=== PATIENT | female | born 1975 | race Caucasian/White ===

== ENCOUNTER 2019-01-11 08:48 | Emergency (ER) | payer BC, OTHER ==
[~2019-01-11] VITALS: Ht 154.9 cm; Wt 62.1 kg
[2019-01-11 08:48] VITALS: BP_SYST 133
[~2019-01-11 08:48] MED LIST: CETI-101 PO; PREN1TAB49 PO
--- NOTE | 2019-01-11 08:48 | NUR ---
BROUGHT BACK TO BED #7 AND TRIAGED. REPORT GIVEN TO NAKITA
--- NOTE | 2019-01-11 08:50 | NUR ---
Pt sent to ED for evaluation of vag bleeding x 5-7 days. Pt c/o SALCEDO no acute distress noted.
[2019-01-11] MEDS ORDERED: KETOROLAC TROMETHAMINE 30 MG VIAL IVP ONE (09:00)
[2019-01-11] MEDS ORDERED: ESTROGENS,CONJUGATED 25 MG in NS 50 ML IV ONE (09:00)
--- NOTE | 2019-01-11 09:10 | NUR ---
# 20 gauge angiocath placed to RAC. Use of asceptic technique. Opsite placed over site. Blood return noted. Blood for lab drawn from site. Flushed with 10 cc of normal saline. No evidence of infiltration noted. Patient tolerated well.
--- NOTE | 2019-01-11 09:20 | NUR ---
ER at bedside examining patient.
[2019-01-11 09:33] LABS: BASOPHILS % (AUTO) 0.5 % (0.0-2.0); EOSINOPHILS # (AUTO) 0.1 K/uL (0.0-0.4); EOSINOPHILS % (AUTO) 1.4 % (0.0-4.0); HEMATOCRIT 37.1 % (36-48); HEMOGLOBIN 12.5 g/dL (12.0-16.0); LYMPHOCYTES # (AUTO) 2.6 K/uL (1.0-5.5); LYMPHOCYTES % (AUTO) 34.2 % (20.5-51.5); MEAN CORPUSCULAR HEMOGLOBIN 29 pg (27-31); MEAN CORPUSCULAR HGB CONC 34 % (32-36); MEAN CORPUSCULAR VOLUME 85 fL (79.0-98.0); MONOCYTES # (AUTO) 0.3 K/uL (0.0-1.0); NEUTROPHILS # (AUTO) 4.6 K/uL (1.8-7.7); NEUTROPHILS % (AUTO) 59.9 % (40.0-70.0); PLATELET COUNT (AUTO) 362 K/uL (130-430); RED BLOOD CELL COUNT(AUTO) 4.35 MIL/uL (4.2-6.2); RED CELL DISTRIBUTION WIDTH 13.6 % (9.0-15.0); WHITE BLOOD COUNT (AUTO) 7.6 K/uL (4.8-10.8)
[2019-01-11 09:47] LABS: CALCIUM 8.6 mg/dL (8.4-11.0); CREATININE 0.65 mg/dL (0.55-1.30); POTASSIUM 3.7 mmol/L (3.5-5.1)
[2019-01-11 09:54] LABS: ALBUMIN 3.6 g/dL (3.4-4.8); TOTAL BILIRUBIN 0.3 mg/dL (0.0-1.0)
--- NOTE | 2019-01-11 10:00 | NUR ---
pt medicated.pt tolerated well.
[2019-01-11 10:10] VITALS: BP_SYST 133
--- NOTE | 2019-01-11 10:10 | NUR ---
Patient given written and verbal discharge instructions and verbalizes understanding. ER MD discussed with patient the results and treatment provided. Patient in stable condition. ID arm band removed. IV catheter removed intact and dressing applied, no active bleeding. Rx of augmentin,provera,naprosyn given. Patient educated on pain management and to follow up with PMD. Pain Scale 0. Opportunity for questions provided and answered. Medication side effect fact sheet provided.
== END 2019-01-11 10:10 | disposition home or self-care (01) ==
LOC: SED 08:48
DX: N93.8 Other specified abnormal uterine and vaginal bleeding (principal); J32.9 Chronic sinusitis, unspecified; Z79.899 Other long term (current) drug therapy
CPT/HCPCS: 36415; 80053; 85025; 96374; 99283; J1885

== ENCOUNTER 2019-01-21 08:54 | Day surgery (SDC) | payer OTHER ==
[~2019-01-21] VITALS: Ht 154.9 cm; Wt 61.7 kg
[2019-01-21] MEDS ORDERED: CEFAZOLIN SOD 2 GM in D5W 50 ML IV ONE (10:00)
[2019-01-21] MEDS ORDERED: SCOPOLAMINE HYDROBROMIDE 1.5 MG PATCH .72 H (TRANSDERM-SCOP) TD SCH (10:30)
[2019-01-21] MEDS ORDERED: LIDOCAINE 2%, 20 ML MDV INJ ONE (11:16)
[2019-01-21] MEDS ORDERED: BUPIVACAINE /PF 0.5% 30 ML VIAL INJ ONE (11:16)
[2019-01-21] MEDS ORDERED: fentaNYL CITRATE/PF 100 MCG/2 ML AMP IVP ONE (11:16)
[2019-01-21] MEDS ORDERED: DEXAMETHASONE SOD PHOSPHATE 4 MG/ML VIAL IVP ONE (11:16)
[2019-01-21] MEDS ORDERED: ONDANSETRON HCL 4 MG/2 ML VIAL IVP ONE (11:16)
[2019-01-21] MEDS ORDERED: NS IRRIG SOLN 1000 ML IR ONE (11:16)
[2019-01-21] MEDS ORDERED: WATER FOR IRRIGATION,STERILE 1,000 ML IRRIG.SOLN IR ONE (11:16)
[2019-01-21] MEDS ORDERED: KETOROLAC TROMETHAMINE 30 MG VIAL IVP ONE (11:16)
[2019-01-21] MEDS ORDERED: SEVOFLURANE 15 MIN GAS INH ONE (11:16)
[2019-01-21] MEDS ORDERED: MIDAZOLAM HCL 5 MG/5 ML VIAL IVP ONE (11:16)
[2019-01-21] MEDS ORDERED: LR 1,000 ML IV.SOLN IV ONE (11:16)
[2019-01-21] MEDS ORDERED: ROPIVACAINE HCL/PF 0.2% EPIDURAL 200 ML PLAST..BAG EP ONE (11:16)
[2019-01-21] MEDS ORDERED: [UNRECOGNIZED DRUG - OTHER] INJ ONE (11:16)
[2019-01-21] MEDS ORDERED: KETOROLAC TROMETHAMINE 30 MG VIAL IVP PRN (11:30)
[2019-01-21] MEDS ORDERED: ONDANSETRON HCL 4 MG/2 ML VIAL IVP PRN (11:30)
[2019-01-21] MEDS ORDERED: fentaNYL CITRATE/PF 100 MCG/2 ML AMP IVP PRN ×2 (11:30)
[2019-01-21] MEDS ORDERED: OXYCODONE/ACETAMINOPHEN 5-325 TABLET PO PRN ×2 (13:30)
[2019-01-21] MEDS ORDERED: ONDANSETRON HCL 4 MG/2 ML VIAL IM PRN (13:30)
[2019-01-21] MEDS ORDERED: HYDROcodone/ACETAMIN 5-325 MG TAB (NORCO/ VICODIN) PO PRN (13:30)
[2019-01-21] MEDS ORDERED: METOCLOPRAMIDE HCL 10 MG/2 ML VIAL IVP ONE ×2 (13:45→17:15)
[2019-01-21] MEDS ORDERED: METOCLOPRAMIDE HCL 10 MG/2 ML VIAL ONE ×2 (14:02→17:32)
[2019-01-21 14:45] VITALS: BP_SYST 123
[2019-01-21] MEDS ORDERED: ONDANSETRON HCL 4 MG/2 ML VIAL ONE (15:16)
[2019-01-21] MEDS ORDERED: OXYCODONE/ACETAMINOPHEN 5-325 TABLET ONE (16:15)
[2019-01-21] MEDS ORDERED: SIMETHICONE 80 MG TAB.CHEW PO SCH (17:00)
== END 2019-01-21 18:15 | disposition home or self-care (01) ==
LOC: SDS 08:54 → SMU 08:54 → SDS 18:15
PROVIDERS: ATTEND Specialist
DX: D25.1 Intramural leiomyoma of uterus (principal); N92.6 Irregular menstruation, unspecified; N83.202 Unspecified ovarian cyst, left side; J02.8 Acute pharyngitis due to other specified organisms; Z98.890 Other specified postprocedural states; Z79.899 Other long term (current) drug therapy
CPT/HCPCS: 58545; 58679; 64488; 88305; J0690; J1100; J1885; J2001; J2250; J2405; J2765; J3010; J3490; J7060; J7120; S2900; E0190